=== PATIENT | male | born 1955 | race Caucasian/White ===

== ENCOUNTER 2019-09-24 10:26 | Emergency (ER) | payer OTHER ==
[~2019-09-24] VITALS: Ht 185.4 cm; Wt 111.1 kg
[2019-09-24] MEDS ORDERED: ZESTRIL10 M1 (11:00)
[2019-09-24] MEDS ORDERED: JARDIANCE25 MG (11:00)
[2019-09-24] MEDS ORDERED: LIVALO1 MG (11:00)
[2019-09-24] MEDS ORDERED: PROPECIA1 MG (11:00)
[2019-09-24] MEDS ORDERED: FORTAMET500 MG PO (11:01)
[2019-09-24] MEDS ORDERED: LUNESTA3 MG (11:01)
== END 2019-09-24 14:22 | disposition home or self-care (01) ==
LOC: ER 10:26
DX: S90.822A Blister (nonthermal), left foot, initial encounter (principal); S90.821A Blister (nonthermal), right foot, initial encounter; W45.8XXA Other foreign body or object entering through skin, initial encounter; Y93.89 Activity, other specified; Y92.89 Other specified places as the place of occurrence of the external cause; Y99.8 Other external cause status